=== PATIENT | male | born 1960 | race Two or more races ===

== ENCOUNTER 2020-01-02 12:04 | Inpatient (IN) | payer OTHER ==
[~2020-01-02] VITALS: Ht 175.3 cm; Wt 97.5 kg
[2020-01-10] MEDS ORDERED: CRESTOR20 MG PO (14:44)
[2020-01-10] MEDS ORDERED: TERAZOSIN HCL1 M1 PO (14:44)
[2020-01-10] MEDS ORDERED: TANDEM PLUS CA1 EACH PO (14:44)
[2020-01-10] MEDS ORDERED: COZAAR100 MG PO (14:45)
[2020-01-10] MEDS ORDERED: CITALOPRAM HBR20 MG PO (14:45)
[2020-01-10] MEDS ORDERED: TOPROL XL100 M1 PO (14:45)
== END 2020-01-27 15:40 | disposition home or self-care (01) | DRG 330 ==
LOC: SURH 01-16 10:56 → RECOVERY 01-17 11:15 → SURH 01-20 10:33
PROVIDERS: ADMIT Colon & Rectal Surgery; ATTEND Colon & Rectal Surgery
PROC: 07BD4ZX Excision of Aortic Lymphatic, Percutaneous Endoscopic Approach, Diagnostic (ICD-10-PCS; 2020-01-17)
PROC: 0DTK4ZZ Resection of Ascending Colon, Percutaneous Endoscopic Approach (ICD-10-PCS; principal; 2020-01-17 16:00)
DX: C18.2 Malignant neoplasm of ascending colon (principal); K92.1 Melena; K91.89 Other postprocedural complications and disorders of digestive system; K56.7 Ileus, unspecified; I11.9 Hypertensive heart disease without heart failure; I25.10 Atherosclerotic heart disease of native coronary artery without angina pectoris; E78.00 Pure hypercholesterolemia, unspecified; G47.33 Obstructive sleep apnea (adult) (pediatric); D50.0 Iron deficiency anemia secondary to blood loss (chronic); D64.9 Anemia, unspecified; D36.0 Benign neoplasm of lymph nodes

== ENCOUNTER 2021-02-08 08:06 | Day surgery (SDC) | payer OTHER ==
[~2021-02-08 08:06] MED LIST: CITALOPRAM HBR20 MG PO; COZAAR100 MG PO; CRESTOR20 MG PO; TANDEM PLUS CA1 EACH PO; TERAZOSIN HCL1 M1 PO; TOPROL XL100 M1 PO
== END 2021-02-08 14:35 | disposition home or self-care (01) ==
LOC: AMB-ENDOS 08:06
PROVIDERS: ATTEND Colon & Rectal Surgery
DX: D12.3 Benign neoplasm of transverse colon (principal); K64.1 Second degree hemorrhoids; Z20.822 Contact with and (suspected) exposure to COVID-19